=== PATIENT | female | born 1980 | race Caucasian/White ===

== ENCOUNTER 2023-06-30 23:33 | Emergency (ER) | payer OTHER, SELFPAY ==
[2023-06-30 23:31] VITALS: BP 110/83; PULSE 86; RESP 15; TEMP 36.4; O2SAT 100
[2023-07-01] MEDS: ACETAMINOPHEN 500 MG TABLET 1000 MG PO (00:56)
[2023-07-01] MEDS: ONDANSETRON HCL ODT 4 MG TABLET PO (00:56)
--- NOTE | 2023-07-01 00:59 | ED.GENADULT ---
HPI - General Adult General Chief complaint: Epistaxis Stated complaint: NOSEBLEED Time Seen by Provider: 07/01/23 00:32 History of Present Illness HPI narrative: Patient 43-year-old female who presents emergency department with chief complaint of epistaxis. The patient reports this evening she woke up and had bleeding from her nose. The patient states that the blood was dripping down the back of her nostrils and reports that she was spitting blood out of her mouth patient reports she has felt nauseated and reports that she has a pressure sensation in her ears afterwards. I Related Data Allergies Allergy/AdvReac Type Severity Reaction Status Date / Time influenza virus vaccine qv Allergy Swelling Verified 06/30/23 23:51 live 2012- (2-49 yrs) [From [employer]] Review of Systems Review of Systems: A 10 system review of systems was completed on the patient and is negative except for what is stated in the HPI. Nursing and ancillary documentation was reviewed. Exam Narrative: GENERAL: Well-appearing, well-nourished, and in no acute distress. HEAD: Normocephalic, atraumatic. EYES: PERRLA and EOMI. ENT: Nares clear, no rhinorrhea clots in both nostrils. The clots were cleared with the patient blowing her nose the left nostril appear to be the 1 that was having most bleeding from it and was packed. Mucous membranes moist. NECK: Supple. CHEST: Clear to auscultation. No respiratory distress. HEART: Regular rate and rhythm. No murmur heard. Normal peripheral pulses. ABDOMEN: Soft, nontender, nondistended, normal active bowel sounds. EXTREMITIES: Normal range of motion. No edema. SKIN: Warm, dry, no rash. NEURO: No focal deficits. Alert and oriented x3. PSYCH: Normal mood and affect. Course Vital Signs Vital signs: Vital Signs Temperature 36.4 C L 06/30/23 23:31 Pulse Rate 86 06/30/23 23:31 Respiratory Rate 15 06/30/23 23:31 Blood Pressure 110/83 06/30/23 23:31 Pulse Oximetry 100 06/30/23 23:31 Oxygen Delivery Room Air 06/30/23 23:31 Temperature 36.4 C L 06/30/23 23:31 Pulse Rate 69 07/01/23 01:36 Respiratory Rate 16 07/01/23 01:36 Blood Pressure 121/73 07/01/23 01:36 Pulse Oximetry 98 07/01/23 01:36 Oxygen Delivery Room Air 06/30/23 23:31 Procedures Epistaxis Control left: Epistaxis Control Date: 07/01/23 Epistaxis Control Time: 01:01 Time Out Performed: Yes Nose Prepped With: lidocaine Direct Inspection: yes Clots Removed by: blowing nose Cautery Used: none Device Inserted: hemostatic balloon Device Size: 75 Patient Tolerated Procedure: well Medical Decision Making MDM Narrative Medical decision making narrative: Differential diagnosis includes traumatic epistaxis, dry mucosa, The clots were cleared from the patient's nostrils and a packing was applied. Patient will be observed in the emergency department and will be referred to ENT Vital Signs Vital Signs: Vital Signs Temperature 36.4 C L 06/30/23 23:31 Pulse Rate 86 06/30/23 23:31 Respiratory Rate 15 06/30/23 23:31 Blood Pressure 110/83 06/30/23 23:31 Pulse Oximetry 100 06/30/23 23:31 Oxygen Delivery Room Air 06/30/23 23:31 Temperature 36.4 C L 06/30/23 23:31 Pulse Rate 69 07/01/23 01:36 Respiratory Rate 16 07/01/23 01:36 Blood Pressure 121/73 07/01/23 01:36 Pulse Oximetry 98 07/01/23 01:36 Oxygen Delivery Room Air 06/30/23 23:31 Discharge Plan Discharge Clinical Impression: Epistaxis Patient Disposition: Home, Self-Care Condition: Stable Instructions: Antibiotic Form, Nosebleed (ED) Follow-up/Referrals: Alfonso Richardson MD [Physician] - Time of Disposition: 02:04
[2023-07-01 01:36] VITALS: BP 121/73; PULSE 69; RESP 16; O2SAT 98
[2023-07-01] MEDS: oxyCODONE (*CRX) 5 MG/5 ML ORAL SOLN IR PO (02:13)
[2023-07-01 02:16] VITALS: BP 126/78; PULSE 68; RESP 16; TEMP 36.7; O2SAT 99
== END 2023-07-01 02:18 | disposition home or self-care (01) ==
LOC: ANHED 07-01 01:24
PROVIDERS: Emergency Provider Emergency Medicine
DX: R04.0 Epistaxis (principal)
CPT/HCPCS: 30901; 99283; A9270

== ENCOUNTER → 2023-07-14 15:45 | Outpatient (CLI) | payer OTHER, SELFPAY ==
--- NOTE | ~2023-07-14 | US_ITS ---
EXAMINATION: US thyroid DATE: 07/14/2023 16:02 INDICATION: Disorder of thyroid, unspecified. TECHNIQUE: Multiple ultrasound images of the thyroid were obtained. COMPARISON: None. FINDINGS: The right thyroid lobe measures 7.5 x 2.8 x 3.1 cm. The left thyroid lobe measures 5.4 x 1.2 x 1.4 c m. In the right thyroid lobe, there is a 4.9 cm mixed cystic and solid, hypoechoic, wider than tall nodule with smooth margin without echogenic foci (TI-RADS TR3). In the left thyroid lobe, there is a 4 mm nodule. IMPRESSION: 1. Thyroid nodules. Ultrasound-guided fine-needle aspiration of the right thyroid nodule is recommend ed. Reviewed, dictated and finalized at location A. CAL ACCOUNTING CLERK IMPRESSION: 1. Thyroid nodules. Ultrasound-guided fine-needle aspiration of the right thyro id nodule is recommended.
== END ==
PROVIDERS: PCP Otolaryngology; Visit Provider Otolaryngology
DX: E04.2 Nontoxic multinodular goiter (principal)
CPT/HCPCS: 76536

== ENCOUNTER 2023-09-09 12:43 | Outpatient (CLI) | payer OTHER, SELFPAY ==
--- NOTE | ~2023-09-09 | US_ITS ---
EXAMINATION: US FNA w image guidance DATE: 09/09/2023 14:48 INDICATION: Right thyroid nodule. TECHNIQUE: The procedure and its benefits and risks were discussed with the patient. Risks specifically discusse d included bleeding. The patient verbalized understanding of the risks and agreed to proceed. The nec k was prepped and draped in the usual sterile manner. 1% lidocaine was used for local anesthesia. 8 passes were made with a 25G needle into the lesion under ultrasound guidance. There were no immedia te complications. FINDINGS: Grayscale ultrasound images demonstrate needles advanced into a 5.3 cm nodule in right thyroid lobe f or biopsy. IMPRESSION: 1. Ultrasound-guided fine needle aspiration of a right thyroid nodule. Reviewed, dictated and finalized at location A.
== END 2023-09-09 12:44 | disposition home or self-care (01) ==
PROVIDERS: PCP Otolaryngology; Visit Provider Otolaryngology
DX: E07.9 Disorder of thyroid, unspecified (principal)
CPT/HCPCS: 10005; 88172; 88173; 88305